=== PATIENT | male | born 1950 | race Caucasian/White ===

== ENCOUNTER 2016-03-21 02:15 | Emergency (ER) | payer MEDICARE, BC ==
[2016-03-21] MEDS ORDERED: NORMAL SALINE 1000 ML 1,000 ML IV ONE (02:45)
[2016-03-21] MEDS ORDERED: ONDANSETRON HCL INJ/PF 4 MG/2 ML SDV IV ONE (02:45)
--- NOTE | 2016-03-21 03:02 | ER Document Report ---
ED General - General Chief Complaint: Vomiting Stated Complaint: VOMITING Time seen by provider: 02:59 Notes: Patient is a 65-year-old male that comes emergency department for chief complaint of 2 days of vomiting, states he vomited multiple times tonight and he cannot keep anything down. Patient states he felt slightly dizzy and lightheaded at home before coming. Patient states that on Tuesday he began has symptoms of diarrhea, he has occasional cough with some congestion, he reports chills, he states that on night when he got up from the bathroom he passed out in the bathroom and woke up on the floor. He denies any headache. Patient is on Coumadin for history of DVT, also has a history of hypertension and hydrocephalus. TRAVEL OUTSIDE OF THE [place] IN LAST 30 DAYS: No - Related Data Allergies/Adverse Reactions: Sulfa (Sulfonamide Antibiotics) Allergy (Verified 01/23/15 17:49) Hives Past Medical History - General Information source: Patient - Social History Smoking Status: Never Smoker Chew tobacco use (# tins/day): No Frequency of alcohol use: None Drug Abuse: None Lives with: Family Family History: CAD Patient has suicidal ideation: No Patient has homicidal ideation: No - Past Medical History Cardiac Medical History: Reports: Hx DVT, Hx Hypercholesterolemia, Hx Hypertension Renal/ Medical History: Denies: Hx Peritoneal Dialysis Surgical Hx: Negative - Immunizations Hx Diphtheria, Pertussis, Tetanus Vaccination: Yes Review of Systems - Review of Systems Constitutional: No symptoms reported EENT: No symptoms reported Cardiovascular: No symptoms reported Respiratory: No symptoms reported Gastrointestinal: See HPI Genitourinary: No symptoms reported Male Genitourinary: No symptoms reported Musculoskeletal: No symptoms reported Skin: No symptoms reported Hematologic/Lymphatic: No symptoms reported Neurological/Psychological: See HPI Physical Exam - Vital signs Vitals: Temp Pulse Resp BP Pulse Ox 97.4 F 70 18 158/93 H 98 03/21/16 02:21 03/21/16 02:21 03/21/16 02:21 03/21/16 02:21 03/21/16 02:21 Interpretation: Normal - General General appearance: Appears well, Alert In distress: None - HEENT Head: Normocephalic, Atraumatic Eyes: Normal Extraocular movements intact: Yes Eyelashes: Normal Pupils: PERRL Nasal: Normal Mouth/Lips: Normal Mucous membranes: Normal Pharynx: Normal Neck: Normal - Respiratory Respiratory status: No respiratory distress Chest status: Nontender Breath sounds: Normal. No: Decreased air movement, Wheezing Chest palpation: Normal - Cardiovascular Rhythm: Regular. No: Tachycardia Heart sounds: Normal auscultation, S1 appreciated, S2 appreciated Murmur: No - Abdominal Inspection: Normal Distension: No distension Bowel sounds: Normal Tenderness: Tender - Very mild generalized tenderness, no guarding, generally unremarkable - Back Back: Normal, Nontender - Extremities General upper extremity: Normal inspection, Nontender, Normal color, Normal ROM , Normal temperature General lower extremity: Normal inspection, Nontender, Normal color, Normal ROM , Normal temperature, Normal weight bearing. 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 Because of episode per patient states he woke up on the floor, Coumadin use, vomiting, CAT scan of the head was performed. Discussed with Dr. Bahena per [facility] guidelines. CT of the head shows stable hydrocephalus with no acute abnormality. CBC, chemistry unremarkable, after IV fluids, nausea medications, patient tolerated fluids, states he feels great, I ambulated the patient, he denied any dizziness, he ambulated easily, patient smiling and requesting to go home. 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 INR is subtherapeutic, patient states that he will follow-up with this closely. Discussed return precautions, patient states understanding and agreement. - Vital Signs Vital signs: Temp Pulse Resp BP Pulse Ox 97.9 F 60 18 143/80 H 98 03/21/16 05:49 03/21/16 05:49 03/21/16 05:49 03/21/16 05:49 03/21/16 05:49 - Laboratory Result Diagrams: 03/21/16 02:49 03/21/16 02:49 Laboratory results interpreted by me: 03/21/16 03/21/16 02:49 02:49 PT 18.3 H Est GFR (Non-Af Amer) 58 L Glucose 111 H Discharge - Discharge Clinical Impression: Lightheadedness Nausea and vomiting Qualifiers: Vomiting type: unspecified Vomiting Intractability: non-intractable Qualified Code(s): R11.2 - Nausea with vomiting, unspecified Condition: Stable Disposition: HOME, SELF-CARE Additional Instructions: Continue rehydration at home, take Zofran as directed, begin with clear fluids, progress to bland diet such as soup, rice, toast, crackers. Rest. Exam, symptoms, and workup are most consistent with a viral syndrome. CAT scan shows stable hydrocephalus with no change from previous. Your INR is slightly subtherapeutic, please follow-up closely for continued monitoring and treatment. Return to emergency department immediately for any concerning or worsening symptoms including uncontrollable vomiting, severe abdominal pain, etc. Prescriptions: Ondansetron [Zofran Odt 4 mg Tablet] 1 - 2 tab PO Q4H PRN #20 tab.rapdis PRN Reason: For Nausea/Vomiting Forms: Elevated Blood Pressure Referrals: TRISTIN BENZ MD [Primary Care Provider] - Follow up as needed
[2016-03-21 03:08] LABS: ABSOLUTE EOSINOPHILS # (AUTO) 0.2 10^3/uL (0.0-0.6); ABSOLUTE LYMPHOCYTES (AUTO) 1.4 10^3/uL (0.5-4.7); ABSOLUTE MONOCYTES (AUTO) 0.4 10^3/uL (0.1-1.4); BASOPHILS % (AUTO) 0.6 % (0-2); EOSINOPHILS % (AUTO) 3.5 % (0-6); HEMATOCRIT 42.3 % (37.9-51.0); HEMOGLOBIN 14.8 g/dL (13.5-17.0); HGB HCT DIFFERENCE 2.1; LYMPHOCYTES % (AUTO) 28.1 % (13-45); MEAN CORPUSCULAR HEMOGLOBIN 32.2 pg (27.0-33.4); MEAN CORPUSCULAR HGB CONC 34.9 g/dL (32.0-36.0); MEAN CORPUSCULAR VOLUME 92 fl (80-97); RED BLOOD COUNT 4.58 10^6/uL (4.35-5.55); RED CELL DISTRIBUTION WIDTH 13.4 % (11.5-14.0); SEGMENTED NEUTROPHILS % (AUTO) 59.8 % (42-78); WHITE BLOOD COUNT 5.1 10^3/uL (4.0-10.5)
[2016-03-21 03:10] LABS: PROTHROMBIN TIME 18.3 SEC (11.4-15.4)
[2016-03-21 03:12] LABS: ALANINE AMINOTRANSFERASE 31 U/L (21-72); ALBUMIN 4.1 g/dL (3.5-5.0); ALKALINE PHOSPHATASE 55 U/L (38-126); ANION GAP 10 (5-19); ASPARTATE AMINO TRANSFERASE 22 U/L (17-59); BILIRUBIN,TOTAL 1.2 mg/dL (0.2-1.3); BLOOD UREA NITROGEN 16 mg/dL (7-20); CALCIUM 9.3 mg/dL (8.4-10.2); CARBON DIOXIDE 25 mmol/L (22-30); CHLORIDE 104 mmol/L (98-107); CREATININE RESULT 1.24 mg/dL (0.52-1.25); GLUCOSE 111 mg/dL (75-110); POTASSIUM 3.9 mmol/L (3.6-5.0); SODIUM 139.2 mmol/L (137-145); TOTAL PROTEIN 7.6 g/dL (6.3-8.2)
[2016-03-21] MEDS ORDERED: NORMAL SALINE 1000 ML 500 ML IV ONE (03:44)
[2016-03-21] MEDS ORDERED: PROMETHAZINE HCL 25 MG TABLET PO ONE (04:12)
[2016-03-21] MEDS ORDERED: ONDANSETRON ODT 4 MG TAB (6 TAB/DSPK) PO PRN (05:21)
[2016-03-21] MEDS ORDERED: FAMOTIDINE 20 MG TABLET PO ONE (05:22)
[2016-03-21 05:53] VITALS: BP 143/80
== END 2016-03-21 05:49 | disposition home or self-care (01) ==
LOC: ER 02:15
DX: R42 Dizziness and giddiness (principal); R11.2 Nausea with vomiting, unspecified; R19.7 Diarrhea, unspecified; R05 Cough; R09.81 Nasal congestion
CPT/HCPCS: 99284; 96374; 36415; 85025; 85610; 80053; 71020; 70450; A9270 ×3; J2405; J7030

== ENCOUNTER 2017-03-20 13:02 | Emergency (ER) | payer MEDICARE, BC ==
[2017-03-20] MEDS ORDERED: NORMAL SALINE 1000 ML 1,000 ML IV ONE (13:21)
[2017-03-20] MEDS ORDERED: ONDANSETRON HCL INJ/PF 4 MG/2 ML SDV IV ONE ×2 (13:21→14:40)
--- NOTE | 2017-03-20 13:23 | ER Document Report ---
ED Medical Screen (RME) - General Chief Complaint: Vomiting Stated Complaint: VOMITING Time Seen by Provider: 03/20/17 13:21 Mode of Arrival: Ambulatory Information source: Patient TRAVEL OUTSIDE OF THE [place] IN LAST 30 DAYS: No - HPI Patient complains to provider of: vomiting Onset: Yesterday - pt. with mild abd pain and vomiting for the past 2 days - Related Data Allergies/Adverse Reactions: Sulfa (Sulfonamide Antibiotics) Allergy (Verified 03/20/17 13:05) Hives Past Medical History - Social History Chew tobacco use (# tins/day): No Frequency of alcohol use: None Drug Abuse: None - Past Medical History Cardiac Medical History: Reports: Hx DVT, Hx Hypercholesterolemia, Hx Hypertension Renal/ Medical History: Denies: Hx Peritoneal Dialysis Past Surgical History: Reports: Hx Cholecystectomy - Immunizations Hx Diphtheria, Pertussis, Tetanus Vaccination: Yes Physical Exam - Vital signs Vitals: Temp Pulse Resp BP Pulse Ox 97.5 F 66 18 174/98 H 99 03/20/17 13:09 03/20/17 13:09 03/20/17 13:09 03/20/17 13:09 03/20/17 13:09 Course - Vital Signs Vital signs: Temp Pulse Resp BP Pulse Ox 97.5 F 66 18 174/98 H 99 03/20/17 13:09 03/20/17 13:09 03/20/17 13:09 03/20/17 13:09 03/20/17 13:09
--- NOTE | 2017-03-20 13:58 | RADIOLOGY REPORT (SQ) ---
EXAM DESCRIPTION: ACUTE ABDOMEN SERIES COMPLETED DATE/TIME: 03/20/2017 1:49 pm REASON FOR STUDY: vomiting COMPARISON: None. NUMBER OF VIEWS: Three views. TECHNIQUE: Frontal chest, supine abdomen and upright/decubitus abdomen radiographic images acquired. LIMITATIONS: None. FINDINGS: CHEST: Lungs clear of infiltrates. FREE AIR: None. No abnormal gas collections. BOWEL GAS PATTERN: Nonobstructive pattern. No dilated loops or air fluid levels. CALCIFICATIONS: No suspicious calcifications. HARDWARE: Clips in the upper abdomen. SOFT TISSUES: No gross mass or suggestion of organomegaly. BONES: No acute fracture. Scoliosis. No worrisome bone lesions. OTHER: No other significant finding. IMPRESSION: NO RADIOGRAPHIC EVIDENCE FOR ACUTE ABDOMINAL DISEASE. TECHNICAL DOCUMENTATION: JOB ID: [id number] [employer]- All Rights Reserved
[2017-03-20 14:23] LABS: ABSOLUTE EOSINOPHILS # (AUTO) 0.1 10^3/uL (0.0-0.6); ABSOLUTE LYMPHOCYTES (AUTO) 1.5 10^3/uL (0.5-4.7); ABSOLUTE MONOCYTES (AUTO) 0.4 10^3/uL (0.1-1.4); ABSOLUTE NEUT (AUTO) 3.1 10^3/uL (1.7-8.2); BASOPHILS % (AUTO) 0.6 % (0-2); EOSINOPHILS % (AUTO) 1.4 % (0-6); HEMATOCRIT 46.6 % (37.9-51.0); HEMOGLOBIN 16.1 g/dL (13.5-17.0); MEAN CORPUSCULAR HGB CONC 34.5 g/dL (32.0-36.0); MEAN CORPUSCULAR VOLUME 93 fl (80-97); MONOCYTES % (AUTO) 8.2 % (3-13); PLATELET COUNT 215 10^3/uL (150-450); RED BLOOD COUNT 5.02 10^6/uL (4.35-5.55); RED CELL DISTRIBUTION WIDTH 12.8 % (11.5-14.0); SEGMENTED NEUTROPHILS % (AUTO) 60.8 % (42-78); TOTAL CELLS COUNTED % (AUTO) 100 %; WHITE BLOOD COUNT 5.2 10^3/uL (4.0-10.5)
[2017-03-20 14:46] LABS: ALANINE AMINOTRANSFERASE 26 U/L (21-72); ALBUMIN 4.8 g/dL (3.5-5.0); ALKALINE PHOSPHATASE 51 U/L (38-126); ANION GAP 12 (5-19); ASPARTATE AMINO TRANSFERASE 28 U/L (17-59); BILIRUBIN,DIRECT 0.4 mg/dL (0.0-0.4); BILIRUBIN,TOTAL 1.3 mg/dL (0.2-1.3); BLOOD UREA NITROGEN 17 mg/dL (7-20); CARBON DIOXIDE 26 mmol/L (22-30); CHLORIDE 103 mmol/L (98-107); GLUCOSE 102 mg/dL (75-110); POTASSIUM 4.6 mmol/L (3.6-5.0); SODIUM 141.4 mmol/L (137-145); TOTAL PROTEIN 8.4 g/dL (6.3-8.2)
--- NOTE | 2017-03-20 14:48 | ER Document Report ---
ED GI/ - General Chief Complaint: Vomiting Stated Complaint: VOMITING Time Seen by Provider: 03/20/17 13:21 Mode of Arrival: Ambulatory Notes: Patient says that he began to have nausea and vomiting yesterday and has vomited about 5 or 6 times since it began. No blood in the vomitus. Had some abdominal pain at first, but that is now gone. He also had some headache at first but that has also dissipated. No diarrhea or change in bowel movements. Last bowel movement was around noon. Has not had any fever. Never had a bowel obstruction. Patient says that he has several coworkers who have been out recently for the same sort of symptoms. TRAVEL OUTSIDE OF THE [place] IN LAST 30 DAYS: No - Related Data Allergies/Adverse Reactions: Sulfa (Sulfonamide Antibiotics) Allergy (Verified 03/20/17 13:05) Hives Past Medical History - General Information source: Patient - Social History Smoking Status: Never Smoker Chew tobacco use (# tins/day): No Frequency of alcohol use: None Drug Abuse: None Family History: Reviewed & Not Pertinent, CAD Patient has suicidal ideation: No Patient has homicidal ideation: No - Past Medical History Cardiac Medical History: Reports: Hx DVT - On warfarin, Hx Hypercholesterolemia , Hx Hypertension Pulmonary Medical History: Reports: Other - Pulmonary embolus Neurological Medical History: Reports: Other - Hydrocephalus being followed by PMD. Past Surgical History: Reports: Hx Cholecystectomy, Hx Herniorrhaphy - Immunizations Hx Diphtheria, Pertussis, Tetanus Vaccination: Yes Review of Systems - Review of Systems Notes: CONSTITUTIONAL : Denies fever. CARDIOVASCULAR: Denies chest pain. RESPIRATORY: Denies cough, chest congestion, or shortness of breath. GASTROINTESTINAL: See HPI. GENITOURINARY: Denies difficulty or painful urinating, urinary frequency, blood in urine. Physical Exam - Vital signs Vitals: Temp Pulse Resp BP Pulse Ox 97.5 F 66 18 174/98 H 99 03/20/17 13:09 03/20/17 13:09 03/20/17 13:09 03/20/17 13:09 03/20/17 13:09 Interpretation: Normal, Hypertensive - Mild - Notes Notes: PHYSICAL EXAMINATION: GENERAL: Well-appearing, no acute distress. Vital signs are all essentially normal. HEAD: Atraumatic, normocephalic. NECK: Normal range of motion, supple. LUNGS: Breath sounds clear and equal bilaterally. HEART: Regular rate and rhythm without murmurs heard. ABDOMEN: Soft, nontender. No guarding or rebound or masses felt. No bruits heard. Course - Re-evaluation Re-evalutation: 03/20/17 15:56 Patient was given a liter of saline and anti-emetics. He is able to take p.o. fluid and feels much better now. Abdomen reexamined and soft and nontender. - Vital Signs Vital signs: Temp Pulse Resp BP Pulse Ox 97.5 F 66 18 174/98 H 99 03/20/17 13:09 03/20/17 13:09 03/20/17 13:09 03/20/17 13:09 03/20/17 13:09 - Laboratory Result Diagrams: 03/20/17 13:32 03/20/17 13:32 Laboratory results interpreted by me: 03/20/17 13:32 Total Protein 8.4 H Discharge - Discharge Clinical Impression: Vomiting, Viral illness Condition: Stable Disposition: HOME, SELF-CARE Additional Instructions: VOMITING: Vomiting (or nausea without vomiting) can be caused by many other different problems. It can mean that something's wrong with the stomach, such as ulcers or inflammation or the intestinal tract, such as appendicitis. But it can also be a symptom of a problem that has nothing to do with the stomach or intestines. Vomiting is common with severe headaches, earaches, tonsillitis, and kidney infections, etc. We see it with pneumonia or heart attacks. Drugs can cause nausea and vomiting. Many abdominal problems cause vomiting; for example, gallstones, kidney stones, pancreatitis, and intestinal obstruction ( blocked bowels). In most cases, curing the vomiting depends on fixing the problem that caused it. For temporary relief, we may use an anti-nausea medicine. For home use, we can prescribe suppositories, chewable pills, pills that dissolve in the mouth, or liquid anti-nausea drugs. If the vomiting seems to be caused by a problem in the stomach, acid-suppressing drugs may be prescribed as well. It's important to avoid dehydration. Sip small amounts of clear liquids ( soft drinks, tea, broth, etc) . Try to take fluids frequently even if you are vomiting to prevent dehydration. Take increasing amounts of fluid and when liquids are being consumed successfully, advance to small amounts of bland food (toast, soups, mashed potatoes, etc.) until you are able to resume a regular diet. Avoid aspirin, tobacco, and alcohol. If the vomiting worsens, if the problem that's making you vomit worsens, or if there's evidence of bleeding in the stomach (such as black, tarry stool, or bloody or black vomit), you should return immediately. Also, return if abdominal pain worsens or becomes localized to one area or you develop high fever. Call your doctor if you aren't improved in 24 hours. VIRAL SYNDROME: The physician has diagnosed a viral infection. Viruses not only cause "colds," but can cause many different symptoms including generalized aching, fever, headache, cough, diarrhea, nausea, vomiting, and fatigue. The treatment, for the most part, is simply relief of symptoms. This means that antibiotics are usually not given. Rest, fluids, pain medications and, occasionally, medication for the specific symptoms that are most bothersome will be prescribed. Use good handwashing to avoid passing the virus to others. Shared toys should be cleaned with disinfectant. Clean the toilets, sinks, and counter surfaces in bathrooms. Launder clothing in hot water. Contact the physician if you develop any new or unusual symptoms such as severe headache, stiff neck, high fever, chest pain, productive cough, or shortness of breath. You should be rechecked if you don't see marked improvement within seven to 10 days. INTRAVENOUS (I V) FLUIDS: As part of your care today, you received intravenous (IV) fluids. IV fluids are administered to patients who are dehydrated or to those who have certain chemical (electrolyte) abnormalities that need correcting. ANTINAUSEA MEDICATION: You have been given a medication to suppress nausea and vomiting. This type of medication can be given as a shot, pill, or suppository. It will usually last for many hours. Pills and shots usually last six to eight hours. For the typical illness, only one or two doses of the medication may be necessary. Mild lightheadedness may occur. This type of medicine can cause drowsiness. Do not drive or operate dangerous machinery while under its influence. Do not mix with alcohol. See your doctor at once if you have muscle spasms or tightness, or uncontrollable motions (particularly of the neck, mouth, or jaw). Persistent vomiting or severe lightheadedness should also be evaluated by the physician. FOLLOW-UP CARE: If you have been referred to a physician for follow-up care, call the physician s office for an appointment as you were instructed or within the next two days. If you experience worsening or a significant change in your symptoms, notify the physician immediately or return to the Emergency Department at any time for re-evaluation. Prescriptions: Ondansetron [Zofran Odt 4 mg Tablet] 1 - 2 tab PO Q4H PRN #6 tab.rapdis PRN Reason: For Nausea/Vomiting Referrals: TRISTIN BENZ MD [Primary Care Provider] - Follow up as needed
[2017-03-20 16:03] VITALS: BP 159/75
== END 2017-03-20 16:03 | disposition home or self-care (01) ==
LOC: ER 13:02
DX: R11.2 Nausea with vomiting, unspecified (principal); B34.9 Viral infection, unspecified; I10 Essential (primary) hypertension; Z86.711 Personal history of pulmonary embolism; Z88.2 Allergy status to sulfonamides; Z90.49 Acquired absence of other specified parts of digestive tract
CPT/HCPCS: 96376; 99284; 96361; 96374; 36415; 85025; 80053; 74022; J2405; J7030

== ENCOUNTER 2019-05-12 09:42 | Emergency (ER) | payer MEDICARE, BC ==
--- NOTE | 2019-05-12 10:00 | ER Document Report ---
ED Medical Screen (RME) - General Chief Complaint: Leg Swelling Stated Complaint: RIGHT LEG SWELLING Time Seen by Provider: 05/12/19 09:52 Primary Care Provider: TRISTIN BENZ MD [Primary Care Provider] - Follow up as needed Mode of Arrival: Wheelchair Information source: Patient Notes: 68-year-old male with history of DVT in his left leg presents to the emergency department with complaints of right lower leg swelling for the past 4 days. Gives history of recent hospitalization for 3 days at [facility] for a lumbar drain. Reports they are planning to place a shunt. He reports he was discharged from the hospital he believes May 03. He rested until 4 days ago when he started exercising that is when his right leg started swelling. He complains of pain to the back of his leg. No erythema or warmth noted. No other complaints such as fever vomiting diarrhea. I have greeted and performed a rapid initial assessment of this patient. A comprehensive ED assessment and evaluation of the patient, analysis of test results and completion of the medical decision making process will be conducted by additional ED providers. TRAVEL OUTSIDE OF THE [place] IN LAST 30 DAYS: No - Related Data Allergies/Adverse Reactions: Sulfa (Sulfonamide Antibiotics) Allergy (Verified 05/12/19 09:52) Hives Past Medical History - Past Medical History Cardiac Medical History: Reports: Hx DVT - On warfarin, Hx Hypercholesterolemia, Hx Hypertension Renal/ Medical History: Denies: Hx Peritoneal Dialysis Past Surgical History: Reports: Hx Cholecystectomy, Hx Herniorrhaphy - Immunizations Hx Diphtheria, Pertussis, Tetanus Vaccination: Yes Physical Exam - Vital signs Vitals: Temp Pulse Resp BP Pulse Ox 98.1 F 72 16 141/89 H 98 05/12/19 09:47 05/12/19 09:47 05/12/19 09:47 05/12/19 09:47 05/12/19 09:47 Course - Vital Signs Vital signs: Temp Pulse Resp BP Pulse Ox 98.1 F 72 16 141/89 H 98 05/12/19 09:47 05/12/19 09:47 05/12/19 09:47 05/12/19 09:47 05/12/19 09:47 Doctor's Discharge - Discharge Referrals: TRISTIN BENZ MD [Primary Care Provider] - Follow up as needed
--- NOTE | 2019-05-12 10:21 | ER Document Report ---
ED Extremity Problem, Lower - General Chief Complaint: Leg Swelling Stated Complaint: RIGHT LEG SWELLING Time Seen by Provider: 05/12/19 09:52 Primary Care Provider: TRISTIN BENZ MD [Primary Care Provider] - Follow up as needed Mode of Arrival: Wheelchair Information source: Patient, [facility] Records Notes: This 68-year-old male patient comes emergency room complaining of right leg pain and swelling for the past 4 days. He has known hydrocephalus. He has prior left leg DVT and takes Coumadin for this. He was recently at [facility] for his symptomatic hydrocephalus. His Coumadin was stopped for 4 days, and he had a lumbar puncture done draining fluid from the central nervous system. That did improve his symptoms until they took the drain out and the fluid began to reaccumulate and caused him to become symptomatic. He was discharged about 05/04/2019, states he rested for about 4 days and then began exercising. Since then he noted right leg swelling with tenderness in the calf. He started back on his Coumadin on 05/07/2019. There is no shortness of breath, there is no fever. At this time the patient takes Coumadin 5 mg on Tuesday, Tuesday, , Tuesday, and takes 7.5mg on Tuesday, Tuesday, Tuesday. TRAVEL OUTSIDE OF THE [place] IN LAST 30 DAYS: No - Related Data Allergies/Adverse Reactions: Sulfa (Sulfonamide Antibiotics) Allergy (Verified 05/12/19 09:52) Hives Past Medical History - General Information source: Patient, [facility] Records - Social History Smoking Status: Never Smoker Cigarette use (# per day): No Chew tobacco use (# tins/day): No Smoking Education Provided: No Frequency of alcohol use: None Lives with: Family Family History: Reviewed & Not Pertinent, CAD Patient has suicidal ideation: No Patient has homicidal ideation: No - Past Medical History Cardiac Medical History: Reports: Hx DVT - Prior left leg DVT, presently on Coumadin, Hx Hypercholesterolemia, Hx Hypertension Past Surgical History: Reports: Hx Cholecystectomy, Hx Herniorrhaphy - Immunizations Hx Diphtheria, Pertussis, Tetanus Vaccination: Yes Review of Systems - Review of Systems Constitutional: No symptoms reported EENT: No symptoms reported Cardiovascular: No symptoms reported Respiratory: No symptoms reported. denies: Short of breath Gastrointestinal: No symptoms reported Genitourinary: No symptoms reported Musculoskeletal: See HPI Hematologic/Lymphatic: No symptoms reported Neurological/Psychological: Gait changes - Balance problems secondary to hydrocephalus Physical Exam - Vital signs Vitals: Temp Pulse Resp BP Pulse Ox 98.1 F 72 16 141/89 H 98 05/12/19 09:47 05/12/19 09:47 05/12/19 09:47 05/12/19 09:47 05/12/19 09:47 - Notes Notes: PHYSICAL EXAMINATION: GENERAL: Well-appearing, well-nourished and in no acute distress. HEAD: Atraumatic, normocephalic. EYES: Pupils equal round and reactive to light, extraocular movements intact, sclera anicteric, conjunctiva are normal. ENT: nares patent, oropharynx clear without exudates. Moist mucous membranes. NECK: Normal range of motion, supple without lymphadenopathy LUNGS: Breath sounds clear to auscultation bilaterally and equal. No wheezes rales or rhonchi. HEART: Regular rate and rhythm without murmurs ABDOMEN: Soft, nontender, normoactive bowel sounds. No guarding, no rebound. No masses appreciated. EXTREMITIES: Right lower extremity shows swelling with pitting edema. There is some firmness and tenderness to palpate into the upper calf region. The left lower extremity is unremarkable on exam. NEUROLOGICAL: Cranial nerves grossly intact. Normal speech, normal gait. Normal sensory, motor, and reflex exams. PSYCH: Normal mood, normal affect. SKIN: Warm, Dry, normal turgor, no rashes or lesions noted. Course - Re-evaluation Re-evalutation: 05/12/19 12:16 The patient started back on his Coumadin on 05/07/2019. He presently takes Coumadin 5 mg on Tuesday, Tuesday, , Tuesday. He takes Coumadin 7.5 mg on Tuesday, Tuesday, Tuesday. He takes his medication in the evening. His venous Doppler is positive for DVT in the right lower extremity. His INR today is 2.20 I will have him take Coumadin 7.5 tonight and tomorrow night, and he will see his primary care provider Tuesday in the office to check his bleeding time and decide about his Coumadin regimen going forward. - Vital Signs Vital signs: Temp Pulse Resp BP Pulse Ox 98.1 F 72 16 141/89 H 98 05/12/19 09:47 05/12/19 09:47 05/12/19 09:47 05/12/19 09:47 05/12/19 09:47 - Laboratory Result Diagrams: 05/12/19 10:05 05/12/19 10:05 Laboratory results interpreted by me: 05/12/19 05/12/19 05/12/19 10:05 10:05 10:05 RBC 4.31 L PT 24.8 H D-Dimer 3.18 H Glucose 129 H Total Protein 8.4 H - Diagnostic Test Radiology reviewed: Image reviewed - Venous Doppler of the right lower extremity shows clot from the distal femoral vein to the ankle. It also involves clot into the gastrocs. Discharge - Discharge Clinical Impression: Right leg DVT Qualifiers: Affected thrombotic vein of extremity: unspecified lower extremity distal vein Chronicity: acute Qualified Code(s): I82.4Z1 - Acute embolism and thrombosis of unspecified deep veins of right distal lower extremity Condition: Stable Disposition: HOME, SELF-CARE Additional Instructions: DVT Outpatient Treatment You have deep venous thrombosis (DVT) in your leg. DVT or phlebitis is blood clots within the large deep veins. This causes redness, warmth, and tenderness of the involved area. This problem is more likely to affect people who smoke, take estrogen, have had recent surgery, have been immobile, have had previous DVT, or who have serious underlying health conditions. Keep your legs elevated. A heating pad, 20 minutes every two hours, can help with leg pain. For now, keep walking to a minimum. Don't do any physical work, lifting, or exercise. If the doctor has recommended medication for you, it's important that you take it. You will be staying on a blood-thinning medication. Follow-up is important. Your medication needs to be monitored. Call or return at once if you cough blood or vomit blood, pass black or bloody stool, or have any other unusual bleeding. DVT can cause serious complications. The clots can damage the valves in the veins, leading to chronic pain and swelling. If a clot breaks loose and floats upstream, it can stick in the lungs. A clot in the lungs, called pulmonary embolism, can be life-threatening. Call the doctor or return if you develop increasing leg pain and swelling, leg discoloration, fever, chest pain, or shortness of breath. Take your Coumadin 7.5 mg tonight and tomorrow night. Elevate your leg, and limit walking as much as possible. Follow-up with your doctor Tuesday in the office to check your bleeding time. RETURN TO THE EMERGENCY ROOM IF ANY NEW OR WORSENING SYMPTOMS. Referrals: TRISTIN BENZ MD [Primary Care Provider] - 05/14/19
[2019-05-12 10:29] LABS: ABSOLUTE EOSINOPHILS # (AUTO) 0.1 10^3/uL (0.0-0.6); ABSOLUTE LYMPHOCYTES (AUTO) 1.1 10^3/uL (0.5-4.7); ABSOLUTE MONOCYTES (AUTO) 0.5 10^3/uL (0.1-1.4); ABSOLUTE NEUT (AUTO) 3.4 10^3/uL (1.7-8.2); BASOPHILS % (AUTO) 0.5 % (0-2); EOSINOPHILS % (AUTO) 2.8 % (0-6); HEMATOCRIT 40.5 % (37.9-51.0); HEMOGLOBIN 14.1 g/dL (13.5-17.0); LYMPHOCYTES % (AUTO) 21.2 % (13-45); MEAN CORPUSCULAR HEMOGLOBIN 32.8 pg (27.0-33.4); MEAN CORPUSCULAR HGB CONC 34.9 g/dL (32.0-36.0); MEAN CORPUSCULAR VOLUME 94 fl (80-97); MONOCYTES % (AUTO) 9.5 % (3-13); PLATELET COUNT 261 10^3/uL (150-450); PROTHROMBIN TIME 24.8 SEC (11.4-15.4); RED BLOOD COUNT 4.31 10^6/uL (4.35-5.55); RED CELL DISTRIBUTION WIDTH 12.8 % (11.5-14.0); TOTAL CELLS COUNTED % (AUTO) 100 %; WHITE BLOOD COUNT 5.1 10^3/uL (4.0-10.5)
[2019-05-12 10:32] LABS: D-DIMER 3.18 ug/mL (0.00-0.50)
[2019-05-12 10:41] LABS: ALBUMIN 4.3 g/dL (3.5-5.0); ALKALINE PHOSPHATASE 68 U/L (38-126); ANION GAP 9 (5-19); ASPARTATE AMINO TRANSFERASE 32 U/L (17-59); BILIRUBIN,DIRECT 0.2 mg/dL (0.0-0.4); BILIRUBIN,TOTAL 0.7 mg/dL (0.2-1.3); BLOOD UREA NITROGEN 12 mg/dL (7-20); CALCIUM 9.3 mg/dL (8.4-10.2); CARBON DIOXIDE 27 mmol/L (22-30); CHLORIDE 101 mmol/L (98-107); GLUCOSE 129 mg/dL (75-110); TOTAL PROTEIN 8.4 g/dL (6.3-8.2)
--- NOTE | 2019-05-12 11:59 | RADIOLOGY REPORT (SQ) ---
EXAM DESCRIPTION: VENOUS UNILATERAL LOWER IMAGES COMPLETED DATE/TIME: 05/12/2019 11:47 am REASON FOR STUDY: RLL swelling hx DVT LLL COMPARISON: None. TECHNIQUE: Dynamic and static aviles scale and color images acquired of the right leg venous system. S elected spectral images acquired with additional compression and augmentation maneuvers. The contrala teral common femoral vein and saphenofemoral junction were also imaged. Images stored on PACS. LIMITATIONS: None. FINDINGS: COMMON FEMORAL: Normal phasicity, compression and augmentation. No visualized echogenic ma terial on aviles scale. No defects on color images. FEMORAL: Occlusive DVT in distal femoral vein POPLITEAL: Occlusive DVT CALF VESSELS: Occlusive DVT GSV and SSV: Normal compression, augmentation. No visualized echogenic material on aviles scale. No def ects on color images. ANY DEEP VENOUS INSUFFICIENCY: Not evaluated. ANY EVIDENCE OF POPLITEAL CYST: No. OTHER: No other significant finding. CONTRALATERAL COMMON FEMORAL VEIN AND SAPHENOFEMORAL JUNCTION: Normal phasicity, compression and augmentation. No visualized echogenic material on aviles scale. No de fects on color images. IMPRESSION: Acute DVT distal femoral vein, popliteal vein, calf vessels. COMMENT: This report was called to Dr. Perez at11:53 on 05/12/2019. TECHNICAL DOCUMENTATION: JOB ID: [id number] 2010 [employer]- All Rights Reserved Reading location - IP/workstation name: [email or web address]
[2019-05-12 12:18] VITALS: BP 167/78
== END 2019-05-12 12:34 | disposition home or self-care (01) ==
LOC: ER 09:42
DX: I82.411 Acute embolism and thrombosis of right femoral vein (principal); I82.431 Acute embolism and thrombosis of right popliteal vein; I82.461 Acute embolism and thrombosis of right calf muscular vein; G91.9 Hydrocephalus, unspecified; I10 Essential (primary) hypertension; Z88.2 Allergy status to sulfonamides
CPT/HCPCS: 36415; 80053; 85025; 85379; 85610; 93971; 99284